=== PATIENT | male | born 1995 | race Asian ===

== ENCOUNTER 2017-12-21 15:53 | Emergency (ER) | payer BC, OTHER ==
[~2017-12-21] VITALS: Ht 175.3 cm; Wt 85.0 kg
[2017-12-21 17:24] LABS: MEAN CORPUSCULAR HEMOGLOBIN 31.4 pg (27.5-34.5); MEAN CORPUSCULAR VOLUME 92.4 fL (81-97); MEAN PLATELET VOLUME 8.4 fL (7.4-10.4); PLATELET COUNT 270 x10^3/uL (130-400); RED BLOOD COUNT 4.84 x10^6/uL (4.38-5.82); RED CELL DISTRIBUTION WIDTH 12.3 % (9.4-14.8)
[2017-12-21 17:31] LABS: BASOPHILS # (AUTO) 0.01 x10^3/uL (0-0.1); BASOPHILS % (AUTO) 0 % (0-1); EOSINOPHILS # (AUTO) 0.01 x10^3/uL (0-0.4); EOSINOPHILS % (AUTO) 0 % (1-7); LYMPHOCYTES # (AUTO) 1.01 x10^3/uL (1-3.4); LYMPHOCYTES % (AUTO) 7 % (22-44); MONOCYTES # (AUTO) 0.67 x10^3/uL (0.2-0.8); MONOCYTES % (AUTO) 5 % (2-9); NEUTROPHILS # (AUTO) 11.89 x10^3/uL (1.8-6.8); NEUTROPHILS % (AUTO) 88 % (42-75)
[2017-12-21 17:33] LABS: MD NO
[2017-12-21 17:35] LABS: ANION GAP 6 mmol/L (5-15); CALCIUM 8.3 mg/dL (8.5-10.1); CHLORIDE 108 mmol/L (98-107); CREATININE 1.13 mg/dL (0.7-1.3)
[2017-12-21 17:47] VITALS: BP 106/67
== END 2017-12-21 18:20 | disposition home or self-care (01) ==
LOC: ED 16:40
DX: R55 Syncope and collapse (principal)
CPT/HCPCS: 36415; 71045; 80048; 82040; 85025; 93005; 99285